=== PATIENT | male | born 1995 | race Caucasian/White ===

== ENCOUNTER 2022-02-26 08:00 | Outpatient (CLI) | payer OTHER, MEDICAID ==
[2022-02-26 18:39] LABS: BASOPHILS # (AUTO) 0.1 10^3/uL (0.0-0.1); BASOPHILS % (AUTO) 0.7 %; EOSINOPHILS # (AUTO) 0.1 10^3/uL (0.0-0.7); EOSINOPHILS % (AUTO) 1.5 %; HCT - HEMATOCRIT 44.6 % (42.0-52.0); HGB - HEMOGLOBIN 14.7 g/dL (14.0-18.0); LYMPHOCYTES # (AUTO) 2.8 10^3/uL (1.5-3.5); LYMPHOCYTES % (AUTO) 30.9 %; MEAN CORPUSCULAR HEMOGLOBIN 29.2 pg (27.0-31.0); MEAN CORPUSCULAR VOLUME 88.5 fL (80.0-94.0); MEAN PLATELET VOLUME 9.9 fL (7.4-11.4); MONOCYTES # (AUTO) 0.6 10^3/uL (0.0-1.0); MONOCYTES % (AUTO) 6.5 %; NEUTROPHILS # (AUTO) 5.4 10^3/uL (1.5-6.6); NEUTROPHILS % (AUTO) 60.2 %; PLT - PLATELET COUNT 263 10^3/uL (130-450); RED BLOOD COUNT 5.04 10^6/uL (4.70-6.10); WHITE BLOOD COUNT 8.9 x10^3/uL (4.8-10.8)
[2022-02-26 18:53] LABS: ALBUMIN 4.7 g/dL (3.2-5.5); ALBUMIN/GLOBULIN RATIO 1.8 (1.0-2.2); ALKALINE PHOSPHATASE 85 IU/L (42-121); ALT ALANINE AMINOTRANSFERASE 20 IU/L (10-60); AST ASPARTATE AMINOTRANSFERASE 20 IU/L (10-42); BILIRUBIN,TOTAL 0.9 mg/dL (0.2-1.0); BUN - BLOOD UREA NITROGEN 13 mg/dL (6-20); CALCIUM 9.4 mg/dL (8.5-10.3); CARBON DIOXIDE - CO2 27 mmol/L (21-32); CHLORIDE 99 mmol/L (101-111); CREATININE 0.7 mg/dL (0.6-1.2); GFR - MDRD 137 (>89); GLUCOSE 69 mg/dL (70-100); SODIUM 137 mmol/L (135-145); TOTAL PROTEIN 7.3 g/dL (6.7-8.2)
[2022-02-26 19:09] LABS: CRP - C-REACTIVE PROTEIN < 1.0 mg/dL (0-1.0)
== END 2022-02-26 23:59 | disposition home or self-care (01) ==
LOC: LAB.N 08:00
PROVIDERS: ATTEND Nurse Practitioner
DX: M25.50 Pain in unspecified joint (principal)
CPT/HCPCS: 36415; 80053; 85025; 85651; 86140

== ENCOUNTER 2022-03-09 19:26 | Emergency (ER) | payer MEDICAID ==
[2022-03-09] MEDS ORDERED: diltiaZEM INJ 5 MG/ML VIAL IVP STA (19:55)
[2022-03-09 19:57] LABS: BASOPHILS # (AUTO) 0.1 10^3/uL (0.0-0.1); BASOPHILS % (AUTO) 0.6 %; EOSINOPHILS # (AUTO) 0.2 10^3/uL (0.0-0.7); EOSINOPHILS % (AUTO) 1.4 %; HGB - HEMOGLOBIN 15.7 g/dL (14.0-18.0); LYMPHOCYTES # (AUTO) 4.7 10^3/uL (1.5-3.5); LYMPHOCYTES % (AUTO) 37.5 %; MEAN CORPUSCULAR HEMOGLOBIN 28.4 pg (27.0-31.0); MEAN CORPUSCULAR VOLUME 88.8 fL (80.0-94.0); MEAN PLATELET VOLUME 9.5 fL (7.4-11.4); MONOCYTES # (AUTO) 0.7 10^3/uL (0.0-1.0); MONOCYTES % (AUTO) 5.6 %; NEUTROPHILS # (AUTO) 6.8 10^3/uL (1.5-6.6); NEUTROPHILS % (AUTO) 54.7 %; PLT - PLATELET COUNT 279 10^3/uL (130-450); RED BLOOD COUNT 5.52 10^6/uL (4.70-6.10); WHITE BLOOD COUNT 12.4 x10^3/uL (4.8-10.8)
[2022-03-09 20:12] LABS: ALBUMIN/GLOBULIN RATIO 1.7 (1.0-2.2); BILIRUBIN,TOTAL 0.5 mg/dL (0.2-1.0); CALCIUM 9.6 mg/dL (8.5-10.3); CREATININE 0.7 mg/dL (0.6-1.2); POTASSIUM 3.9 mmol/L (3.5-5.0)
--- NOTE | 2022-03-09 20:15 | XRAY Report ---
PROCEDURE: Chest 1 View X-Ray INDICATIONS: Chest pain TECHNIQUE: One view of the chest was acquired. COMPARISON: None. FINDINGS: Surgical changes and devices: None. Lungs and pleura: No pleural effusions or pneumothorax. Lungs are clear. Mediastinum: Mediastinal contours appear normal. Heart size is normal. Bones and chest wall: No suspicious bony lesions. Overlying soft tissues appear unremarkable. IMPRESSION: Normal for age, source of chest pain is not found. No pneumonia is suspected. Reviewed by: Herson Herbert MD on 03/09/2022 8:13 PM PST Approved by: Herson Herbert MD on 03/09/2022 8:13 PM PST Station ID: [id number]
--- NOTE | 2022-03-09 20:29 | ED Physician Documentation ---
History of Present Illness - Stated complaint Stated Complaint: IRREGULAR HB - Chief complaint Chief Complaint: Cardiac - Additonal information Additional information: 27-year-old male presents emergency department for concerns that he is in atrial fibrillation. He reports that intermittently for years he has had palpitations and feelings of an irregular heart rate however he has had difficult time following up with his doctors. He did get an apple iWatch a number of months ago and intermittently since then it has told him that he is having atrial fibrillation. He sometimes feels palpitations but not always. He denies chest pain or shortness of air. No syncopal episodes. No leg swelling. He endorses daily cannabis. Denies any alcohol use. He has done LSD twice in his lifetime. There is a family history for A. fib In the maternal grandmother. On presentation to the emergency department he is in A. fib with a variable rate between 90 and 130. He was initially administered 10 mg of Cardizem. Review of Systems Constitutional: denies: Fever, Chills Ears: reports: Reviewed and negative Nose: reports: Reviewed and negative Cardiac: reports: Palpitations. denies: Chest pain / pressure Respiratory: denies: Dyspnea, Cough : reports: Reviewed and negative Skin: reports: Reviewed and negative PD PAST MEDICAL HISTORY - Past Medical History Respiratory: Asthma Derm: Eczema Other Past Medical History: occasional LSD use - Past Surgical History Past Surgical History: No - Present Medications Home Medications: Ambulatory Orders Medication Instructions Recorded Confirmed RX: Albuterol Sulfate [Proair Hfa PRN 01/06/14 01/06/14 Inhaler] Aspirin [Aspirin EC] 81 mg PO DAILY #30 tab 03/09/22 RX: Metoprolol Tartrate [Lopressor] 12.5 mg PO BID #30 tablet 03/09/22 - Allergies Allergies/Adverse Reactions: Allergies Allergy/AdvReac Type Severity Reaction Status Date / Time No Known Drug Allergies Allergy Verified 03/09/22 19:30 - Social History Does the pt smoke?: No Smoking Status: Never smoker Does the pt drink ETOH?: No Does the pt have substance abuse?: No Substance Use and Type: Marijuana, Other - Immunizations Immunizations are current?: Yes PD ED PE NORMAL - General General: Alert and oriented X 3, No acute distress, Well developed/nourished - HEENT HEENT: Atraumatic, Moist mucous membranes, Pharynx benign - Neck Neck: Supple, no meningeal sign, No adenopathy - Cardiac Cardiac: No murmur, Strong equal pulses. No: RRR (Irregularly irregular) - Respiratory Respiratory: No respiratory distress, Clear bilaterally - Abdomen Abdomen: Normal bowel sounds, Soft - Back Back: No CVA TTP, No spinal TTP - Derm Derm: Normal color, Warm and dry - Extremities Extremities: No deformity Results - Vitals Vitals: Vital Signs - 24 hr 03/09/22 03/09/22 03/09/22 19:31 20:04 20:30 Temperature 36.5 C Heart Rate 90 105 H 67 Respiratory 16 24 22 Rate Blood Pressure 133/80 H 113/77 132/77 H O2 Saturation 100 100 100 Oxygen O2 Source Room air - EKG (time done) 1940 Rate: Rate (enter#) (89) Rhythm: Atrial fibrillation [place]: Normal Intervals: Normal OK QRS: Normal Ischemia: Normal ST segments Compare to prior EKG: Old EKG unavailable Computer interpretation: Agree with computer - Labs Labs: Laboratory Tests 03/09/22 03/09/22 03/09/22 19:50 19:50 19:50 WBC 12.4 H RBC 5.52 Hgb 15.7 Hct 49.0 MCV 88.8 MCH 28.4 MCHC 32.0 RDW 12.0 Plt Count 279 MPV 9.5 Neut # (Auto) 6.8 H Lymph # (Auto) 4.7 H Kings # (Auto) 0.7 Eos # (Auto) 0.2 Baso # (Auto) 0.1 Absolute Nucleated RBC 0.00 Nucleated RBC % 0.0 Sodium 137 Potassium 3.9 Chloride 99 L Carbon Dioxide 30 Anion Gap 8.0 BUN 9 Creatinine 0.7 Estimated GFR (MDRD) 137 Glucose 74 Calcium 9.6 Total Bilirubin 0.5 AST 23 ALT 22 Alkaline Phosphatase 92 Troponin I High Sens 2.3 Total Protein 8.0 Albumin 5.0 Globulin 3.0 Albumin/Globulin Ratio 1.7 Lipase 26 TSH Urine Opiates Screen Ur Oxycodone Screen Urine Methadone Screen Ur Propoxyphene Screen Ur Barbiturates Screen Ur Tricyclics Screen Ur Phencyclidine Scrn Ur Amphetamine Screen U Methamphetamines Scrn U Benzodiazepines Scrn Urine Cocaine Screen U Cannabinoids Screen Ethyl Alcohol 03/09/22 03/09/22 03/09/22 19:50 19:50 20:13 WBC RBC Hgb Hct MCV MCH MCHC RDW Plt Count MPV Neut # (Auto) Lymph # (Auto) Kings # (Auto) Eos # (Auto) Baso # (Auto) Absolute Nucleated RBC Nucleated RBC % Sodium Potassium Chloride Carbon Dioxide Anion Gap BUN Creatinine Estimated GFR (MDRD) Glucose Calcium Total Bilirubin AST ALT Alkaline Phosphatase Troponin I High Sens Total Protein Albumin Globulin Albumin/Globulin Ratio Lipase TSH 1.47 Urine Opiates Screen NEGATIVE Ur Oxycodone Screen NEGATIVE Urine Methadone Screen NEGATIVE Ur Propoxyphene Screen NEGATIVE Ur Barbiturates Screen NEGATIVE Ur Tricyclics Screen NEGATIVE Ur Phencyclidine Scrn NEGATIVE Ur Amphetamine Screen NEGATIVE U Methamphetamines Scrn NEGATIVE U Benzodiazepines Scrn NEGATIVE Urine Cocaine Screen NEGATIVE U Cannabinoids Screen POSITIVE H Ethyl Alcohol < 5.0 - Rads (name of study) cxr Radiology: Final report received (normal for age) PD MEDICAL DECISION MAKING - ED course Complexity details: reviewed results, re-evaluated patient, considered differential, d/w patient, d/w family ED course: 27-year-old male presents emergency department for evaluation of palpitations and concerned that he has atrial fibrillation. For years he has had palpitations but about 6 months ago he got an apple iWatch and over the last few months it intermittently tells him that he is in atrial fibrillation. He has been to his primary care provider for this but they have never been able to capture it. On presentation to the emergency department he is very well-appearing. However our initial EKG did capture atrial fibrillation with a rate of 90. While on the monitor here in the emergency department it has been variable be between 90 and 130. Initially gave him a dose of Cardizem which slowed his heart rate and kept him in the 90s. I did obtain CBC and electrolytes that showed no acute worrisome abnormalities. His TSH is normal. Urine drug screen is positive for cannabis only and his alcohol level was negative. His chest x-ray showed no acute focal findings. His [id number] score is 0 putting him at very low risk for stroke at less than 0.2 %/year. Therefore I will defer oral anticoagulation but I am making the recommendation for him to start taking a daily aspirin. This patient is scheduled to see his primary care doctor on 28 March. At that time he should receive a referral for echocardiogram and to a assistant. Given his young age, he may benefit from ablation if this is nonvalvular A. fib. Prescription for Metroprolol tartrate 12.5 mg twice daily with hold limits as well as aspirin was [facility] in [place]. Otherwise emergent return precautions were discussed. Departure - Departure Disposition: 01 Home, Self Care Clinical Impression: Atrial fibrillation by electrocardiogram Condition: Stable Record reviewed to determine appropriate education?: Yes Instructions: Atrial Fibrillation Dc Prescriptions: Aspirin [Aspirin EC] 81 mg PO DAILY #30 tab RX: Metoprolol Tartrate [Lopressor] 12.5 mg PO BID #30 tablet Comments: You are seen today in the emergency department because intermittently for many months but perhaps a few years you have been having heart palpitations. Today our EKG confirms atrial fibrillation. He has had a variable rate but it is mostly in the 90s and low 100s. In order to help manage the rate I have sent a prescription for Metroprolol to the [facility] in [place]. He should take 12.5 mg twice daily. Hold for any heart rates under 60. He should also start taking a daily 81 mg aspirin. It is important that when you follow-up with his primary care doctor on the he get referred to cardiology for an echocardiogram. At his age he may benefit from evaluation for the possibility of ablation to reduce his lifetime risk of stroke if he would be a candidate. I do encourage you to stop smoking cannabis daily. This could be a trigger for recurrent atrial fibrillation. I also advised that you avoid tobacco or any stimulating drugs. If at any point you find that your symptoms are worsening, you develop chest pain, have severe shortness of air, any fainting episodes then you should return immediately to the ER.
[2022-03-09 20:30] LABS: MUDS CUTOFF CONCENTRATIONS CUTOFF CONC BELOW:
[2022-03-09 20:48] LABS: AMPHETAMINE SCREEN,URINE NEGATIVE (NEGATIVE); BARBITURATE SCREEN,UR NEGATIVE (NEGATIVE); BENZODIAZEPINES SCREEN, URINE NEGATIVE (NEGATIVE); COCAINE SCREEN URINE NEGATIVE (NEGATIVE); METHADONE SCREEN, URINE NEGATIVE (NEGATIVE); METHAMPHETAMINES SCREEN, URINE NEGATIVE (NEGATIVE); OPIATE SCREEN, URINE NEGATIVE (NEGATIVE); OXYCODONE SCREEN, URINE NEGATIVE (NEGATIVE); PROPOXYPHENE SCREEN, URINE NEGATIVE (NEGATIVE); THC CANNABINOID SCREEN, URINE POSITIVE (NEGATIVE); TRICYCLIC ANTIDEPRESSANT,URINE NEGATIVE (NEGATIVE)
[2022-03-09 21:04] VITALS: BP 109/73
== END 2022-03-09 21:05 | disposition home or self-care (01) ==
LOC: ED 19:26
DX: I48.91 Unspecified atrial fibrillation (principal); J45.909 Unspecified asthma, uncomplicated
CPT/HCPCS: 36415; 80053; 80306; 80320; 83690; 84443; 84484; 85025; 93005; 96374; 99283